=== PATIENT | female | born 1985 | race Hispanic/Latino ===

== ENCOUNTER 2020-10-26 01:51 | Emergency (ER) | payer SELFPAY ==
[2020-10-26] MEDS ORDERED: Lidocaine 1% PF 5 ML VIAL ONE (03:04)
[2020-10-26] MEDS ORDERED: Boostrix 0.5 ML (Tdap) VIAL ONE (03:47)
[2020-10-26] MEDS ORDERED: Bacitracin 1 PK ONE (03:57)
== END 2020-10-26 03:58 | disposition home or self-care (01) ==
LOC: ERS 01:51
DX: S01.411A Laceration without foreign body of right cheek and temporomandibular area, initial encounter (principal); Z23 Encounter for immunization; W25.XXXA Contact with sharp glass, initial encounter
CPT/HCPCS: 12011; 90715